=== PATIENT | female | born 1985 | race American Indian/Alaskan Native ===

== ENCOUNTER 2017-08-14 22:30 | Emergency (ER) | payer OTHER ==
--- NOTE | 2017-08-15 01:17 | XRay Report ---
FINAL REPORT PROCEDURE: XR CHEST ROUTINE 2V TECHNIQUE: PA and lateral chest radiographs were obtained. CPT 05395 HISTORY: zaina COMPARISON: No prior studies are available for comparison. FINDINGS: Heart: Normal. Mediastinum/Vessels: Normal. Lungs/Pleural space: Normal. Bony thorax: No acute osseous abnormality. Other: IMPRESSION: There is no evidence of an acute cardiopulmonary process.
--- NOTE | 2017-08-15 03:08 | Emergency Department Report ---
ED General Adult HPI - General Chief complaint: Upper Respiratory Infection Stated complaint: CHEST PAIN,DIFFICULT BREATHING Time Seen by Provider: 08/15/17 02:40 Source: patient Mode of arrival: Ambulatory Limitations: No Limitations - History of Present Illness -: week(s) (1) Associated Symptoms: cough. denies: fever/chills, headaches, loss of appetite, nausea/vomiting, rash - Related Data Previous Rx's Medication Instructions Recorded Last Taken Type Dexchlorpheniram/Phenylephrine 1 each PO Q6H #12 tab 08/15/17 Unknown Rx [Rymed Tablet] Allergies Allergy/AdvReac Type Severity Reaction Status Date / Time No Known Allergies Allergy Unverified 08/14/17 22:37 ED Review of Systems ROS: Stated complaint: CHEST PAIN,DIFFICULT BREATHING Other details as noted in HPI Constitutional: denies: chills, fever, weakness Eyes: denies: eye pain, eye discharge, vision change ENT: throat pain (has resolved), congestion (nasal), other (rhinorrhea, sneezing ) Respiratory: cough, SOB with exertion (because of coughing too much). denies: wheezing Cardiovascular: denies: chest pain, palpitations Gastrointestinal: denies: abdominal pain, nausea, vomiting, diarrhea Genitourinary: denies: urgency, dysuria, discharge Musculoskeletal: denies: back pain, joint swelling, arthralgia Skin: denies: rash, lesions Neurological: denies: headache, weakness, paresthesias Psychiatric: denies: anxiety, depression Hematological/Lymphatic: denies: easy bleeding, easy bruising ED Past Medical Hx - Past Medical History Previous Medical History?: No - Surgical History Past Surgical History?: No - Social History Smoking Status: Former Smoker Substance Use Type: None - Medications Home Medications: Home Medications Medication Instructions Recorded Confirmed Last Taken Type Dexchlorpheniram/Phenylephrine 1 each PO Q6H #12 tab 08/15/17 Unknown Rx [Rymed Tablet] ED Physical Exam - General Limitations: No Limitations General appearance: alert, in no apparent distress - Head Head exam: Present: atraumatic, normocephalic - Eye Eye exam: Present: normal appearance - ENT ENT exam: Present: mucous membranes moist - Neck Neck exam: Present: normal inspection - Respiratory Respiratory exam: Present: normal lung sounds bilaterally. Absent: respiratory distress - Cardiovascular Cardiovascular Exam: Present: regular rate, normal rhythm. Absent: systolic murmur, diastolic murmur, rubs, gallop - GI/Abdominal GI/Abdominal exam: Present: soft, normal bowel sounds - Extremities Exam Extremities exam: Present: normal inspection - Neurological Exam Neurological exam: Present: alert, oriented X3 - Psychiatric Psychiatric exam: Present: normal affect, normal mood - Skin Skin exam: Present: warm, dry, intact, normal color. Absent: rash ED Course Vital Signs 08/14/17 22:38 Temperature 97.8 F Pulse Rate 98 H Respiratory 20 Rate Blood Pressure 118/82 O2 Sat by Pulse 99 Oximetry ED Medical Decision Making - Radiology Data Radiology results: report reviewed Chest x-ray no cardiopulmonary disease - Medical Decision Making Patient's been evaluated but this provider fast track. I discussed the patient at this sounds more like a viral infection versus seasonal allergies. Discussed the patient that she can take over the counter Saira D, or Claritin- D. Discussed she can take Tylenol or Motrin for any pain. And I'll discharge her on Tessalon Perles for cough. Patient verbalized understanding Critical care attestation.: If time is entered above; I have spent that time in minutes in the direct care of this critically ill patient, excluding procedure time. ED Disposition Clinical Impression: Allergic rhinitis Qualifiers: Allergic rhinitis trigger: unspecified Allergic rhinitis seasonality: unspecified seasonality Qualified Code(s): J30.9 - Allergic rhinitis, unspecified Disposition: DC-01 TO HOME OR SELFCARE Is pt being admited?: No Does the pt Need Aspirin: No Condition: Stable Instructions: Allergic Rhinitis (ED) Additional Instructions: Take medication as prescribed. He can take [id number] Claritin-D, all loratadine D. Increase her fluids. Follow-up with the primary care provider. Prescriptions: Dexchlorpheniram/Phenylephrine [Rymed Tablet] 1 each PO Q6H #12 tab Referrals: SAE ARMSTRONG MD [Primary Care Provider] - 3-5 Days [facility] [Provider Group] - 3-5 Days Forms: Work/School Release Form(ED)
[2017-08-15 03:23] VITALS: BP 114/82
== END 2017-08-15 03:30 | disposition home or self-care (01) ==
LOC: ED 22:30
DX: J30.9 Allergic rhinitis, unspecified (principal); Z87.891 Personal history of nicotine dependence
CPT/HCPCS: 71046; 87116; 87430; 93005; 93010; 99284